=== PATIENT | female | born 1935 | race Caucasian/White ===

== ENCOUNTER 2017-03-11 07:23 | Emergency (ER) | payer MEDICARE, BC ==
[2017-03-11 07:46] VITALS: BP 157/80
--- NOTE | 2017-03-11 08:11 | UC ---
UC General HPI - HPI Summary HPI Summary: complaint of rash on her buttocks that started 1 month ago has spread to the inside of her legs extremly itching and burning flat red rash tried using ice packs and spray lidocaine with some relief started using lotrisone- helps with the iching but still spreading hx of lichen sclerosis 2010 denies fever, dysuria, vaginal discharge - History of Current Complaint Chief Complaint: [facility] Stated Complaint: PERSONAL Time Seen by Provider: 03/11/17 08:00 Hx Obtained From: Patient - Allergy/Home Medications Allergies/Adverse Reactions: Allergies Allergy/AdvReac Type Severity Reaction Status Date / Time No Known Allergies Allergy Verified 03/11/17 07:36 Home Medications: Home Medications Atenolol TAB* [Tenormin TAB* 25 MG] 25 mg PO DAILY 03/11/17 [History Confirmed 03/11/17] Cholecalciferol [Vitamin D3] 1,000 unit PO DAILY 03/11/17 [History Confirmed ] Lidocaine [Gnp Burn Relief [place]] 0.5 % EX ONCE PRN 03/11/17 [History Confirmed 03/11/17] Losartan Potassium & Hydrochlo [Hyzaar 100/12.5 mg] 1 tab PO DAILY 03/11/17 [ History Confirmed 03/11/17] Pantoprazole TAB (NF) [Protonix TAB (NF)] 20 mg PO Q48H 03/11/17 [History Confirmed 03/11/17] Prasugrel (NF) [Effient (NF)] 10 mg PO DAILY 03/11/17 [History Confirmed ] Simvastatin TAB(NF) [Zocor 20 MG (NF)] 20 mg PO DAILY 03/11/17 [History Confirmed 03/11/17] PMH/Surg Hx/FS Hx/Imm Hx Previously Healthy: Yes - lichen sclerosis Cardiovascular History Of: Reports: Cardiac Disorders - [place] with stents, Hypertension - Surgical History Surgical History: Yes Surgery Procedure, Year, and Place: hernia. stent placement - Family History Known Family History: Negative: Cardiac Disease, Hypertension, Diabetes - Social History Occupation: Retired Lives: With Family Alcohol Use: None Substance Use Type: None Smoking Status (MU): Never Smoked Tobacco Review of Systems Constitutional: Negative Skin: Rash Eyes: Negative ENT: Negative Respiratory: Negative Cardiovascular: Negative Gastrointestinal: Negative Genitourinary: Negative Motor: Negative Neurovascular: Negative Musculoskeletal: Negative Neurological: Negative Psychological: Negative All Other Systems Reviewed And Are Negative: Yes Physical Exam Triage Information Reviewed: Yes Appearance: No Pain Distress, Well-Nourished Vital Signs: Initial Vital Signs Temp 97.5 F 03/11/17 07:39 Pulse 78 03/11/17 07:39 Resp 20 03/11/17 07:39 BP 157/80 03/11/17 07:39 Pulse Ox 99 03/11/17 07:39 Vital Signs Reviewed: Yes Eyes: Positive: Conjunctiva Clear ENT: Positive: Pharynx normal, TMs normal. Negative: Nasal congestion Neck: Positive: No Lymphadenopathy Respiratory: Positive: Lungs clear, Normal breath sounds, No respiratory distress Cardiovascular: Positive: RRR, No Murmur, Pulses Normal Abdomen Description: Positive: Nontender, Soft Bowel Sounds: Positive: Present Musculoskeletal: Positive: No Edema Neurological: Positive: Alert Psychological Exam: Normal Skin: Positive: Other - flat erythematous rash over vulva and anus- Course/Dx - Course Course Of Treatment: exam completed. will treat with recommmended sterois cream and refer to dermatology - Differential Dx - Multi-Symptom Differential Diagnoses: Other - tinea, contact dermatitis Provider Diagnoses: lichen sclerosis Discharge - Discharge Plan Condition: Stable Disposition: HOME Prescriptions: Clobetasol 0.05% OINT* 1 applic TOPICAL BID #1 tube Lidocaine 2% VISCOUS* 0 ml TRANSDERM BEDTIME #1 btl Patient Education Materials: Acute Rash (ED) Referrals: David HENDRICKSON,[place] [Medical Doctor] - Joanne Wyman [Medical Doctor] - Additional Instructions: keep area of rash clean and dry apply ointment BID to rash and use lidocaine before bedtime call dermatology for further evaluation and treatment Increase fluids and rest Please review your discharge instructions. If your symptoms do not improve please call your primary care provider or return to urgent care. Your blood pressure is elevated. Please contact your primary care provider within 1 day -4 weeks for further evaluation.
== END 2017-03-11 08:37 | disposition home or self-care (01) ==
LOC: UCCORT 07:23
DX: L90.0 Lichen sclerosus et atrophicus (principal); I25.2 Old myocardial infarction; I10 Essential (primary) hypertension; Z95.5 Presence of coronary angioplasty implant and graft
CPT/HCPCS: 99202; G0463